=== PATIENT | male | born 1985 | race Caucasian/White ===

== ENCOUNTER 2024-10-21 03:17 | Emergency (ER) | payer BC ==
[2024-10-21] MEDS ORDERED: Hydrocortisone/Neomycin/Polymyxin B Otic Soln 10 ML Bottle EARBOTH ONE (03:18)
== END 2024-10-21 03:46 | disposition home or self-care (01) ==
LOC: FB.ED 03:17
DX: H04.121 Dry eye syndrome of right lacrimal gland (principal)
CPT/HCPCS: 99283; A9270-GY